=== PATIENT | male | born 1965 | race African-American/Black ===

== ENCOUNTER 2022-09-09 04:02 | Emergency (ER) | payer MEDICARE, OTHER ==
[2022-09-09 04:07] LABS: Glucose,Whole Blood 181 mg/dL (70-110)
[2022-09-09 04:12] VITALS: BP 188/125; PULSE 165; RESP 18; TEMP 97.8
[2022-09-09] MEDS ORDERED: SODIUM CHLORIDE 0.9% 1,000 ML IV STA ×2 (04:21→04:22)
[2022-09-09] MEDS ORDERED: PIPERACILLIN-TAZOBACTAM 3.375 GM in SODIUM CHLORIDE 0.9% 100 ML IVPB STA (04:21)
[2022-09-09] MEDS ORDERED: VANCOMYCIN 1,000 MG in SODIUM CHLORIDE 0.9% 250 ML IVPB STA (04:21)
[2022-09-09] MEDS ORDERED: VANCOMYCIN 2,000 MG in SODIUM CHLORIDE 0.9% 500 ML 500 ML IVPB STA (04:24)
[2022-09-09] MEDS ORDERED: VANCOMYCIN 2,250 MG in SODIUM CHLORIDE 0.9% 500 ML 500 ML IVPB STA (04:26)
[2022-09-09] MEDS ORDERED: ETOMIDATE 2 MG/ML 10 ML VIAL ONE (04:30)
[2022-09-09] MEDS ORDERED: ROCURONIUM 10 MG/ML (5 ML VIAL) IV ONE (04:30)
[2022-09-09] MEDS ORDERED: EPINEPHrine 10 ML SYRINGE (0.1 MG/ML) ONE (04:37)
[2022-09-09] MEDS ORDERED: DEXTROSE 5% IN WATER 50 ML BAG ONE (04:37)
[2022-09-09] MEDS ORDERED: SODIUM BICARB 8.4% 50 ML SYR (1 MEQ/ML) ONE (04:37)
[2022-09-09] MEDS ORDERED: AMIODARONE 50 MG/ML 3 ML VIAL IV ONE (04:37)
[2022-09-09 04:45] LABS: HCT 48.8 % (39.0-53.0); HGB 14.5 gm/dL (13.0-17.5); Hypochromasia Marked; MCH 25.1 pg (25.0-35.0); MCHC 29.6 g/dL (31.0-37.0); MCV 84.9 fL (80.0-100.0); Mean Platelet Volume 7.8; Platelet Count 282 k/uL (150-450); RBC 5.75 m/uL (4.30-5.90); RDW 14.9 % (11.5-15.5); WBC 13.1 k/uL (3.8-10.6)
[2022-09-09] MEDS ORDERED: ESMOLOL IN SODIUM CHLORIDE PMX 2.5 GM in SALINE 1 250ML.BAG IV ONE (04:45)
[2022-09-09 04:48] LABS: ALT 31 U/L (4-49); AST 42 U/L (17-59); African American GFR (CKD) 58 (>60 ml/min/1.73 sqM); Albumin 4.6 g/dL (3.5-5.0); Alkaline Phosphatase 79 U/L (38-126); Anion Gap 22 mmol/L; Blood Urea Nitrogen 18 mg/dL (9-20); Calcium 8.9 mg/dL (8.4-10.2); Carbon Dioxide 16 mmol/L (22-30); Chloride 106 mmol/L (98-107); Glucose 248 mg/dL (74-99); Magnesium 2.4 mg/dL (1.6-2.3); Non-African American GFR(CKD) 50 (>60 ml/min/1.73 sqM); Potassium 4.3 mmol/L (3.5-5.1); Sodium 144 mmol/L (137-145); Total Bilirubin 0.4 mg/dL (0.2-1.3); Total Protein 7.7 g/dL (6.3-8.2)
[2022-09-09 05:10] LABS: INR 0.9 (<1.2); Partial Thromboplastin Time 21.9 sec (22.0-30.0)
--- NOTE | 2022-09-09 05:26 | ED ---
General Adult HPI - General Chief complaint: Shortness of Breath Stated complaint: SHAMEKA Time Seen by Provider: 09/09/22 04:21 Source: EMS, RN notes reviewed, old records reviewed Mode of arrival: EMS Limitations: no limitations - History of Present Illness Initial comments: Patient is a 57-year-old male who presents emergency Department complaining of difficulty in breathing. Patient has a history of TBI, is , is unable find any information at this time. He continues troponin of his nasal cannula as well as his nonrebreather. He is tachycardic, hypertensive, agitated, in significant respiratory distress. His increased work of breathing at this time. Has white foaming spit present at his mouth. EMS states that he woke up short of breath. Little history otherwise at this time. Presents as a priority 1 and was placed in trauma bay 1. - Related Data Home Medications Medication Instructions Recorded Confirmed Losartan Potassium [Cozaar] 100 mg PO DAILY 08/16/13 08/16/13 Multivitamins, Thera [Multivitamin] 1 each PO DAILY 08/16/13 08/16/13 Allergies Allergy/AdvReac Type Severity Reaction Status Date / Time aspirin Allergy Unknown Verified 08/16/13 20:24 Review of Systems ROS Statement: Those systems with pertinent positive or pertinent negative responses have been documented in the HPI. ROS Other: All systems not noted in ROS Statement are negative. Past Medical History Past Medical History: Hypertension Additional Past Medical History / Comment(s): CATARACTS, HEAD INJURY History of Any Multi-Drug Resistant Organisms: None Reported Additional Past Surgical History / Comment(s): CATARACT REMOVAL Past Psychological History: No Psychological Hx Reported Past Alcohol Use History: None Reported Past Drug Use History: None Reported General Exam - General Exam Comments Initial Comments: General: Appears in significant respiratory distress. Tachypneic. Hypoxic. HEAD: Normal with no signs of head trauma. EYES: PERRLA, EOMI, conjunctiva normal, no discharge. Pupils are 3 mm and equal bilaterally. ENT: Hearing grossly intact, normal oropharynx. RESPIRATORY: Rhonchorous crackles bilaterally. Hypoxia. Tachypnea. Increased work of breathing. C/V: Tachycardic with a regular rhythm. S1 and S2 auscultated, no significant edema, peripheral pulses 2+ and intact throughout ABD: Abd is soft, nontender, nondistended EXT: Normal range of motion, no obvious deformity SKIN: No rashes or lesions observed on exposed skin. NEURO: Alert. Unknown orientation. Moving all 4 extremities. Limitations: no limitations Course Vital Signs 09/09/22 09/09/22 04:08 04:31 Temperature 97.8 F Pulse Rate 165 H Respiratory 18 Rate Blood Pressure 188/125 O2 Sat by Pulse 78 L Oximetry Fraction of 100 Inspired Oxygen (FIO2) Medical Decision Making - Medical Decision Making Was pt. sent in by a medical professional or institution (, PA, HEARING IMPAIRED TEACHER, urgent care, hospital, or [facility]...) When possible be specific @ -No Did you speak to anyone other than the patient for history (EMS, parent, family, police, friend...)? What history was obtained from this source @ -I spoke with the EMS provided patient's history. This includes TBI, deafness, history of recent shortness of breath.Discussed with family, states that the patient has had a cough for a few days that didn't seem severe. Patient also history TBI, is deaf, is blind. Did you review nursing and triage notes (agree or disagree)? Why? @ -I reviewed and agree with nursing and triage notes Were old charts reviewed (outside hosp., previous admission, EMS record, old EKG, old radiological studies, urgent care reports/EKG's, [facility] records)? Report findings @ -No old charts were reviewed Differential Diagnosis (chest pain, altered mental status, abdominal pain women, abdominal pain men, vaginal bleeding, weakness, fever, dyspnea, syncope, headache, dizziness, GI bleed, back pain, seizure, CVA, palpatations, mental health, musculoskeletal)? @ -Differential Dyspnea: Coronary syndrome, arrhythmia, tamponade, asthma, COPD, pulmonary embolism, pneumonia, pneumothorax, pulmonary effusion, anaphylaxis, diabetic ketoacidosis, flailed chest, pulmonary contusion, diaphragmatic rupture, anemia, neuromuscular, this is not meant to be an all-inclusive list. EKG interpreted by me (3pts min.). @ -As above X-rays interpreted by me (1pt min.). @ -Was pending, not completed as the patient expands cardiac arrest CT interpreted by me (1pt min.). @ -None done U/S interpreted by me (1pt. min.). @ -None done What testing was considered but not performed or refused? (CT, X-rays, U/S, labs)? Why? @ -None What meds were considered but not given or refused? Why? @ -None Did you discuss the management of the patient with other professionals (professionals i.e. , MARTY, HEARING IMPAIRED TEACHER, lab, RT, psych nurse, social service manager, electronic engraver, teacher, freedom of information officer, rehabilitation case coordinator)? Give summary @ -Yes, discussed with the medical diagnostic radiographer who requested the body be held in the morgue. Was smoking cessation discussed for >3mins.? @ -No Was critical care preformed (if so, how long)? @ -yes, 35 minutes Were there social determinants of health that impacted care today? How? (Homelessness, low income, unemployed, alcoholism, drug addiction, transportation, low edu. Level, literacy, decrease access to med. care, fpc, rehab)? @ -No Was there de-escalation of care discussed even if they declined (Discuss DNR or withdrawal of care, Hospice)? DNR status @ -No What co-morbidities impacted this encounter? (DM, HTN, Smoking, COPD, CAD, Cancer, CVA, ARF, Chemo, Hep., AIDS, mental health diagnosis, sleep apnea, morbid obesity)? @ -History of TBI Was patient admitted / discharged? Hospital course, mention meds given and route, prescriptions, significant lab abnormalities, going to OR and other pertinent info. @ -Based on the patient's presentation and physical exam, presented in significant respiratory distress. Patient is hypoxic on room air. Tachycardic. Mildly hypertensive. Appears to be tiring out in terms of respiratory status. Unfortunately, due to the patient's past medical history of TBI does not appear he will tolerated BiPAP mask as he is fighting with staff just for nasal cannula oxygen at this point. As the patient remains hypoxic despite attempts a nonrebreather as well as 6 L nasal cannula, the decision was made to intubate the patient for hypoxic respiratory failure. We did confirm with family prior to intubation the patient is full code as this is a high-risk intubation concerning the patient's current clinical status. They did express that the patient is full code. Patient did tolerate intubation, however has copious secretions following intubation. Vital signs initially were stable postintubation, with mild bradycardia. Hypoxia is resolved. Hypertension has also resolved.Empirically ordered antibiotics for possible sepsis. However patient became more and more bradycardic over time. Eventually he went into ventricular fibrillation arrest shortly after intubation. Patient was removed from the back, started on BVM, and ACLS protocol was followed.EKG appeared to show possible sinusoidal pattern just prior to cardiac arrest. Patient's potassium was within normal limits on blood work. Following 22 minutes of ACLS protocol, including 7 epinephrines, 6 bicarbs, 2 calciums, amiodarone bolus of 300 and 150, as well as an esmolol bolus of 500 mcg/kg. Patient received defibrillation multiple times as well as multiple rounds of defibrillation at 200 J. Patient remained in refractory V. fib the entire time. After 22 minutes of ACLS, after discussion with the resuscitation team including nursing staff and respiratory therapy, myself we'll agree that further intervention is futile. Patient remains in refractory V. fib. Time of called at 0458. Patient's labs did return and were remarkable for leukocytosis of 13. Patient's creatinine is mildly elevated at 1.52. Lactic acid is 9.6. Troponin mildly elevated to 0.057. BNP is 1300. I updated family in the family room and informed them of the patient's . I answered all questions that they had. They're brought back to sit with the body. I spoke with the medical diagnostic radiographer who wishes for the body to be held in the morgue. Patient therefore will [place] [facility] [place] has . Undiagnosed new problem with uncertain prognosis? @ -No Drug Therapy requiring intensive monitoring for toxicity (Heparin, Nitro, Insulin, Cardizem)? @ -No Were any procedures done? @ -Intubation, defibrillation Diagnosis/symptom? @ -Acute hypoxic respiratory failure cramping intubation and mechanical ventilation, cardiac arrest, refractory ventricular fibrillation, lactic acidosis Acute, or Chronic, or Acute on Chronic? @ -Acute Uncomplicated (without systemic symptoms) or Complicated (systemic symptoms)? @ -Complicated Side effects of treatment? @ -No Exacerbation, Progression, or Severe Exacerbation? @ -No Poses a threat to life or bodily function? How? (Chest pain, USA, AL, pneumonia, PE, COPD, DKA, ARF, appy, cholecystitis, CVA, Diverticulitis, Homicidal, Suic idal, threat to staff... and all critical care pts) @ -Yes, resulted in . Diagnosis/symptom? @ -History of TBI, deaf, blind Acute, or Chronic, or Acute on Chronic? @ -Chronic Uncomplicated (without systemic symptoms) or Complicated (systemic symptoms)? @ -Complicated Side effects of treatment? @ -none Exacerbation, Progression, or Severe Exacerbation] @ -no Poses a threat to life or bodily function? @ -no - Lab Data Result diagrams: 09/09/22 04:21 09/09/22 04:21 Lab Results 09/09/22 09/09/22 09/09/22 Range/Units 04:05 04:21 04:21 WBC 13.1 H (3.8-10.6) k/uL RBC 5.75 (4.30-5.90) m/uL Hgb 14.5 (13.0-17.5) gm/dL Hct 48.8 (39.0-53.0) % MCV 84.9 (80.0-100.0) fL MCH 25.1 (25.0-35.0) pg MCHC 29.6 L (31.0-37.0) g/dL RDW 14.9 (11.5-15.5) % Plt Count 282 (150-450) k/uL MPV 7.8 Neutrophils % (Manual) 21 % Lymphocytes % (Manual) 76 % Monocytes % (Manual) 2 % Eosinophils % (Manual) 1 % Neutrophils # (Manual) 2.75 (1.3-7.7) k/uL Lymphocytes # (Manual) 9.96 H (1.0-4.8) k/uL Monocytes # (Manual) 0.26 (0-1.0) k/uL Eosinophils # (Manual) 0.13 (0-0.7) k/uL Nucleated RBCs 0 (0-0) /100 WBC Manual Slide Review Performed Hypochromasia Marked PT 10.0 (9.0-12.0) sec INR 0.9 (<1.2) APTT 21.9 L (22.0-30.0) sec Sodium (137-145) mmol/L Potassium (3.5-5.1) mmol/L Chloride (98-107) mmol/L Carbon Dioxide (22-30) mmol/L Anion Gap mmol/L BUN (9-20) mg/dL Creatinine (0.66-1.25) mg/dL Est GFR (CKD-EPI)AfAm (>60 ml/min/1.73 sqM) Est GFR (CKD-EPI)NonAf (>60 ml/min/1.73 sqM) Glucose (74-99) mg/dL POC Glucose (mg/dL) 181 H (70-110) mg/dL POC Glu Atomizer Assembler ID Geoff Vee Plasma Lactic Acid Josue (0.7-2.0) mmol/L Calcium (8.4-10.2) mg/dL Magnesium (1.6-2.3) mg/dL Total Bilirubin (0.2-1.3) mg/dL AST (17-59) U/L ALT (4-49) U/L Alkaline Phosphatase (38-126) U/L Troponin I (0.000-0.034) ng/mL NT-Pro-B Natriuret Pep pg/mL Total Protein (6.3-8.2) g/dL Albumin (3.5-5.0) g/dL 09/09/22 09/09/22 09/09/22 Range/Units 04:21 04:21 04:21 WBC (3.8-10.6) k/uL RBC (4.30-5.90) m/uL Hgb (13.0-17.5) gm/dL Hct (39.0-53.0) % MCV (80.0-100.0) fL MCH (25.0-35.0) pg MCHC (31.0-37.0) g/dL RDW (11.5-15.5) % Plt Count (150-450) k/uL MPV Neutrophils % (Manual) % Lymphocytes % (Manual) % Monocytes % (Manual) % Eosinophils % (Manual) % Neutrophils # (Manual) (1.3-7.7) k/uL Lymphocytes # (Manual) (1.0-4.8) k/uL Monocytes # (Manual) (0-1.0) k/uL Eosinophils # (Manual) (0-0.7) k/uL Nucleated RBCs (0-0) /100 WBC Manual Slide Review Hypochromasia PT (9.0-12.0) sec INR (<1.2) APTT (22.0-30.0) sec Sodium 144 (137-145) mmol/L Potassium 4.3 (3.5-5.1) mmol/L Chloride 106 (98-107) mmol/L Carbon Dioxide 16 L (22-30) mmol/L Anion Gap 22 mmol/L BUN 18 (9-20) mg/dL Creatinine 1.52 H (0.66-1.25) mg/dL Est GFR (CKD-EPI)AfAm 58 (>60 ml/min/1.73 sqM) Est GFR (CKD-EPI)NonAf 50 (>60 ml/min/1.73 sqM) Glucose 248 H (74-99) mg/dL POC Glucose (mg/dL) (70-110) mg/dL POC Glu Atomizer Assembler ID Plasma Lactic Acid Josue 9.6 H* (0.7-2.0) mmol/L Calcium 8.9 (8.4-10.2) mg/dL Magnesium 2.4 H (1.6-2.3) mg/dL Total Bilirubin 0.4 (0.2-1.3) mg/dL AST 42 (17-59) U/L ALT 31 (4-49) U/L Alkaline Phosphatase 79 (38-126) U/L Troponin I 0.057 H* (0.000-0.034) ng/mL NT-Pro-B Natriuret Pep pg/mL Total Protein 7.7 (6.3-8.2) g/dL Albumin 4.6 (3.5-5.0) g/dL /09/26 Range/Units 04:21 WBC (3.8-10.6) k/uL RBC (4.30-5.90) m/uL Hgb (13.0-17.5) gm/dL Hct (39.0-53.0) % MCV (80.0-100.0) fL MCH (25.0-35.0) pg MCHC (31.0-37.0) g/dL RDW (11.5-15.5) % Plt Count (150-450) k/uL MPV Neutrophils % (Manual) % Lymphocytes % (Manual) % Monocytes % (Manual) % Eosinophils % (Manual) % Neutrophils # (Manual) (1.3-7.7) k/uL Lymphocytes # (Manual) (1.0-4.8) k/uL Monocytes # (Manual) (0-1.0) k/uL Eosinophils # (Manual) (0-0.7) k/uL Nucleated RBCs (0-0) /100 WBC Manual Slide Review Hypochromasia PT (9.0-12.0) sec INR (<1.2) APTT (22.0-30.0) sec Sodium (137-145) mmol/L Potassium (3.5-5.1) mmol/L Chloride (98-107) mmol/L Carbon Dioxide (22-30) mmol/L Anion Gap mmol/L BUN (9-20) mg/dL Creatinine (0.66-1.25) mg/dL Est GFR (CKD-EPI)AfAm (>60 ml/min/1.73 sqM) Est GFR (CKD-EPI)NonAf (>60 ml/min/1.73 sqM) Glucose (74-99) mg/dL POC Glucose (mg/dL) (70-110) mg/dL POC Glu Atomizer Assembler ID Plasma Lactic Acid Josue (0.7-2.0) mmol/L Calcium (8.4-10.2) mg/dL Magnesium (1.6-2.3) mg/dL Total Bilirubin (0.2-1.3) mg/dL AST (17-59) U/L ALT (4-49) U/L Alkaline Phosphatase (38-126) U/L Troponin I (0.000-0.034) ng/mL NT-Pro-B Natriuret Pep 1360 pg/mL Total Protein (6.3-8.2) g/dL Albumin (3.5-5.0) g/dL - EKG Data -: EKG Interpreted by Me EKG Comments: 12-lead Electrocardiogram Interpretation Note EKG was reviewed and interpreted by myself. 12-lead ECG performed at 0421 is interpreted by me as revealing sinus bradycardia at a rate of 52 beats per minute. Left axis deviation. QRS duration is 164 ms, QTc is 378 ms.. There were no ST or T wave abnormalities to suggest myocardial ischemia or injury. R wave progression across the precordium was was delayed. By my interpretation this EKG is non-diagnostic for acute ischemia. 12-lead Electrocardiogram Interpretation Note EKG was reviewed and interpreted by myself. 12-lead ECG performed at 0433 is interpreted by me as revealing sinus bradycardia at a rate of 56 beats per minute. Left axis deviation. QRS duration is 206 ms, QTc is 464 ms.. There were no ST or T wave abnormalities to suggest myocardial ischemia or injury. R wave progression across the precordium was delayed. This EKG obtained just prior to cardiac arrest, showing somewhat sinusoidal wave pattern concerning for possible hyperkalemia. Critical Care Time Critical Care Time: Yes Total Critical Care Time: 35 Disposition Clinical Impression: Acute respiratory failure with hypoxia, Sustained ventricular fibrillation, Ca rdiac arrest, Disposition: Referrals: None,Stated [Primary Care Provider] - 1-2 days Time of Disposition: 05:00 Preliminary Cause of : cardiopulmonary arrest.
[2022-09-09 05:29] LABS: Eosinophils # (M) 0.13 k/uL (0-0.7); Lymphocytes # (M) 9.96 k/uL (1.0-4.8); Monocytes # (M) 0.26 k/uL (0-1.0); Neutrophils # (M) 2.75 k/uL (1.3-7.7); Neutrophils % (M) 21 %; Nucleated Red Blood Cells 0 /100 WBC (0-0); Total Cells Counted 100
--- NOTE | 2022-09-09 06:59 | ED ---
Medical Decision Making - Lab Data Result diagrams: 09/09/22 04:21 09/09/22 04:21 Lab Results 09/09/22 09/09/22 09/09/22 Range/Units 04:05 04:21 04:21 WBC 13.1 H (3.8-10.6) k/uL RBC 5.75 (4.30-5.90) m/uL Hgb 14.5 (13.0-17.5) gm/dL Hct 48.8 (39.0-53.0) % MCV 84.9 (80.0-100.0) fL MCH 25.1 (25.0-35.0) pg MCHC 29.6 L (31.0-37.0) g/dL RDW 14.9 (11.5-15.5) % Plt Count 282 (150-450) k/uL MPV 7.8 Neutrophils % (Manual) 21 % Lymphocytes % (Manual) 76 % Monocytes % (Manual) 2 % Eosinophils % (Manual) 1 % Neutrophils # (Manual) 2.75 (1.3-7.7) k/uL Lymphocytes # (Manual) 9.96 H (1.0-4.8) k/uL Monocytes # (Manual) 0.26 (0-1.0) k/uL Eosinophils # (Manual) 0.13 (0-0.7) k/uL Nucleated RBCs 0 (0-0) /100 WBC Manual Slide Review Performed Hypochromasia Marked PT 10.0 (9.0-12.0) sec INR 0.9 (<1.2) APTT 21.9 L (22.0-30.0) sec Sodium (137-145) mmol/L Potassium (3.5-5.1) mmol/L Chloride (98-107) mmol/L Carbon Dioxide (22-30) mmol/L Anion Gap mmol/L BUN (9-20) mg/dL Creatinine (0.66-1.25) mg/dL Est GFR (CKD-EPI)AfAm (>60 ml/min/1.73 sqM) Est GFR (CKD-EPI)NonAf (>60 ml/min/1.73 sqM) Glucose (74-99) mg/dL POC Glucose (mg/dL) 181 H (70-110) mg/dL POC Glu Mining Engineer ID Geoff Vee Plasma Lactic Acid Josue (0.7-2.0) mmol/L Calcium (8.4-10.2) mg/dL Magnesium (1.6-2.3) mg/dL Total Bilirubin (0.2-1.3) mg/dL AST (17-59) U/L ALT (4-49) U/L Alkaline Phosphatase (38-126) U/L Troponin I (0.000-0.034) ng/mL NT-Pro-B Natriuret Pep pg/mL Total Protein (6.3-8.2) g/dL Albumin (3.5-5.0) g/dL 09/09/22 09/09/22 09/09/22 Range/Units 04:21 04:21 04:21 WBC (3.8-10.6) k/uL RBC (4.30-5.90) m/uL Hgb (13.0-17.5) gm/dL Hct (39.0-53.0) % MCV (80.0-100.0) fL MCH (25.0-35.0) pg MCHC (31.0-37.0) g/dL RDW (11.5-15.5) % Plt Count (150-450) k/uL MPV Neutrophils % (Manual) % Lymphocytes % (Manual) % Monocytes % (Manual) % Eosinophils % (Manual) % Neutrophils # (Manual) (1.3-7.7) k/uL Lymphocytes # (Manual) (1.0-4.8) k/uL Monocytes # (Manual) (0-1.0) k/uL Eosinophils # (Manual) (0-0.7) k/uL Nucleated RBCs (0-0) /100 WBC Manual Slide Review Hypochromasia PT (9.0-12.0) sec INR (<1.2) APTT (22.0-30.0) sec Sodium 144 (137-145) mmol/L Potassium 4.3 (3.5-5.1) mmol/L Chloride 106 (98-107) mmol/L Carbon Dioxide 16 L (22-30) mmol/L Anion Gap 22 mmol/L BUN 18 (9-20) mg/dL Creatinine 1.52 H (0.66-1.25) mg/dL Est GFR (CKD-EPI)AfAm 58 (>60 ml/min/1.73 sqM) Est GFR (CKD-EPI)NonAf 50 (>60 ml/min/1.73 sqM) Glucose 248 H (74-99) mg/dL POC Glucose (mg/dL) (70-110) mg/dL POC Glu Mining Engineer ID Plasma Lactic Acid Josue 9.6 H* (0.7-2.0) mmol/L Calcium 8.9 (8.4-10.2) mg/dL Magnesium 2.4 H (1.6-2.3) mg/dL Total Bilirubin 0.4 (0.2-1.3) mg/dL AST 42 (17-59) U/L ALT 31 (4-49) U/L Alkaline Phosphatase 79 (38-126) U/L Troponin I 0.057 H* (0.000-0.034) ng/mL NT-Pro-B Natriuret Pep pg/mL Total Protein 7.7 (6.3-8.2) g/dL Albumin 4.6 (3.5-5.0) g/dL /09/26 Range/Units 04:21 WBC (3.8-10.6) k/uL RBC (4.30-5.90) m/uL Hgb (13.0-17.5) gm/dL Hct (39.0-53.0) % MCV (80.0-100.0) fL MCH (25.0-35.0) pg MCHC (31.0-37.0) g/dL RDW (11.5-15.5) % Plt Count (150-450) k/uL MPV Neutrophils % (Manual) % Lymphocytes % (Manual) % Monocytes % (Manual) % Eosinophils % (Manual) % Neutrophils # (Manual) (1.3-7.7) k/uL Lymphocytes # (Manual) (1.0-4.8) k/uL Monocytes # (Manual) (0-1.0) k/uL Eosinophils # (Manual) (0-0.7) k/uL Nucleated RBCs (0-0) /100 WBC Manual Slide Review Hypochromasia PT (9.0-12.0) sec INR (<1.2) APTT (22.0-30.0) sec Sodium (137-145) mmol/L Potassium (3.5-5.1) mmol/L Chloride (98-107) mmol/L Carbon Dioxide (22-30) mmol/L Anion Gap mmol/L BUN (9-20) mg/dL Creatinine (0.66-1.25) mg/dL Est GFR (CKD-EPI)AfAm (>60 ml/min/1.73 sqM) Est GFR (CKD-EPI)NonAf (>60 ml/min/1.73 sqM) Glucose (74-99) mg/dL POC Glucose (mg/dL) (70-110) mg/dL POC Glu Mining Engineer ID Plasma Lactic Acid Josue (0.7-2.0) mmol/L Calcium (8.4-10.2) mg/dL Magnesium (1.6-2.3) mg/dL Total Bilirubin (0.2-1.3) mg/dL AST (17-59) U/L ALT (4-49) U/L Alkaline Phosphatase (38-126) U/L Troponin I (0.000-0.034) ng/mL NT-Pro-B Natriuret Pep 1360 pg/mL Total Protein (6.3-8.2) g/dL Albumin (3.5-5.0) g/dL Disposition Clinical Impression: Acute respiratory failure with hypoxia, Sustained ventricular fibrillation, Cardiac arrest, Disposition: Referrals: None,Stated [Primary Care Provider] - 1-2 days Preliminary Cause of : cardiopulmonary arrest Procedures - Intubation Sedative: Etomidate Mg Given: 20 Paralytic: Rocuronium Mg Given: 80 Laryngoscope: other (glidescope) Size: 4 ET Tube Size: 7.5 Tube Secured Depth (cm): 23 Tube Secured Location: lips Tube Placement Confirmation: visualized tube passing through cords, equal breath sounds bilaterally, confirmation by capnometry Patient Tolerated Procedure: well
[2022-09-09] MEDS ORDERED: VANCOMYCIN 2,000 MG in SODIUM CHLORIDE 0.9% 500 ML 500 ML IVPB SCH (18:00)
== END 2022-09-09 06:42 | disposition expired ==
LOC: EC 04:02
DX: J96.01 Acute respiratory failure with hypoxia (principal); I49.01 Ventricular fibrillation; I46.9 Cardiac arrest, cause unspecified; I10 Essential (primary) hypertension; Z79.899 Other long term (current) drug therapy; Z88.6 Allergy status to analgesic agent
CPT/HCPCS: 36415; 36600; 94002; 92950; 93005; 83880; 80053; 83605; 83735; 84484; 85025; 85610; 85730; 99291; 31500; J0282; J0171; J2704